=== PATIENT | female | born 1955 | race Caucasian/White ===

== ENCOUNTER 2018-01-24 17:30 | Observation (INO) ==
[2018-01-24] MEDS ORDERED: Insulin Regular, Human 100 UNIT/ML IV ONE (18:22)
[2018-01-24] MEDS ORDERED: *HR* Dextrose 50 % in Water (Syg) 50 ML SYRINGE IVP PRN ×2 (18:22→22:32)
[2018-01-24] MEDS ORDERED: Insulin Human Regular 100 UNIT in 0.9 % Sodium Chloride 100 ML IVC SCH ×2 (18:30→22:45)
--- NOTE | 2018-01-24 18:46 | Emergency Department Note ---
Disposition Clinical Impression: HHNC (hyperglycemic hyperosmolar nonketotic coma) Disposition: Admitted As Inpatient Condition: Fair General Adult HPI - General Chief complaint: ED Nausea/Vomiting/Diarrhea Stated complaint: High BS Time Seen by Provider: 01/24/18 18:09 Source: patient Mode of arrival: private vehicle Limitations: no limitations Nursing Notes Reviewed: Yes Vital Signs Reviewed: Yes - History of Present Illness HPI Narrative: This is a 62-year-old female with past medical history including hyperlipidemia , presents with a chief complaint of "high blood sugar". Patient complains of increased thirst, increased urination, increase night sweats for the past week. She has been using the restroom 4-5 times per night. She also complains of some vision changes. When she puts on her glasses, her vision remains blurry. This is new for her. She also complains of nausea today. Denies abdominal pain. No emesis. Her symptoms have progressively been getting worse. She overall feels weak. She was at her brother's house today. She checked her blood sugar with his glucose monitor. It read "high". As a result she came to the ER for further evaluation. She denies lightheadedness, chest pain, shortness of breath, abdominal pain, diarrhea. Denies fevers, chills, steroid use, antibiotic use, recent illness. 19:30 Discussed with hospitalist, Dr. Morataya, who will accept the patient for admission. Pain Scale: 3 - Related Data Home Medications Medication Instructions Recorded Confirmed Atorvastatin Calcium [Lipitor] 20 mg PO DAILY 01/24/18 01/24/18 Cholecalciferol (D-3) [Vitamin D] 1,000 unit PO DAILY 01/24/18 01/24/18 Cyanocobalamin (Vitamin B-12) 2,500 mcg PO DAILY 01/24/18 01/24/18 [Vitamin B12] Meloxicam [Mobic] 15 mg PO DAILY 01/24/18 01/24/18 Multivit-Min/FA/Lycopen/Lutein [A 1 tab PO DAILY 01/24/18 01/24/18 Thru Z Select Multivit Tab] Triamterene/HCTZ 37.5/25mg 1 each PO DAILY 01/24/18 01/24/18 [Dyazide] Allergies Allergy/AdvReac Type Severity Reaction Status Date / Time codeine Allergy Anaphylaxis Verified 01/24/18 19:16 All systems ED: reviewed and negative except as stated. Review of Systems: As Per HPI Constitutional: Denies: fever, chills Eyes: Reports: other (Blurry vision) ENT ED: Denies: throat pain, dysphagia Cardiovascular: Denies: chest pain, palpitations Respiratory: Denies: cough, dyspnea Gastrointestinal: Reports: nausea. Denies: abdominal pain, vomiting, diarrhea Genitourinary: Reports: frequency. Denies: dysuria Integumentary: Denies: rash Neurological: Reports: weakness. Denies: headache Endocrine: Reports: fatigue, polydipsia, polyuria Hematological/Lymphatic: Denies: easy bruising Past Medical History - Past Medical History Attestation: Yes The following information was validated with the patient. Source: patient Medical history: Reports: hyperlipidemia Psychiatric history: Reports: no psych history - Social History Smoking Status: Former smoker Smokeless Tobacco Status: No Alcohol use: Reports: none Drug use: Reports: none Physical Exam - General Limitations: no limitations General appearance: alert, in no apparent distress - Head Head exam: atraumatic, normocephalic - Eye Eye exam: Present: normal appearance, EOMI - ENT ENT exam: normal exam, mucous membranes moist - Respiratory Respiratory exam: Present: normal lung sounds bilaterally. Absent: respiratory distress, wheezes - Cardiovascular Cardiovascular exam: Present: normal rhythm, tachycardia, normal heart sounds - Abdominal Exam Abdominal exam: Present: soft, Non-Tender, normal bowel sounds. Absent: distention - Neurological Exam Neurological exam: Present: alert, oriented X3, CN II-XII intact - Psychiatric Psychiatric exam: Present: normal affect, normal mood - Skin Skin exam: Present: warm, dry, intact Course Course Narrative: Patient presents with signs and symptoms suspicious for new onset diabetes mellitus. Bedside glucometer 2 reads "high". She is tachycardic and appears dehydrated. We will check EKG, CBC, BMP, hepatic panel, lactic acid, troponin, venous blood gas, beta hydroxybutyric acid. Check chest x-ray. We will start IV fluids. Once BMP results with the potassium come back, we will start insulin. 19:10 EKG reviewed. Sinus tachycardia with rate 105 bpm. No evidence of acute ischemia. Troponin negative. Labs reviewed. She has a large anion gap and VBG with pH of 7.44. Corrected sodium 135. Potassium 3.5. Glucose is 719. Beta hydroxybutyric acid is elevated and greater than 2 We will give the patient oral and IV potassium prior to initiating the insulin drip. She continues to receive multiple liters of IV fluids for hydration. The patient will be admitted for further management of HHNC. Hospitalist consulted. 19:15 Discussed with hospitalist, Dr. Morataya. They accept admission. Vital Signs Temperature 98.2 F 01/24/18 17:46 Pulse Rate 111 01/24/18 17:46 Respiratory Rate 18 01/24/18 17:46 Blood Pressure 133/92 01/24/18 17:46 O2 Sat by Pulse Oximetry 96 01/24/18 17:46 Temperature 98.2 F 01/24/18 18:18 Pulse Rate 111 01/24/18 18:18 Respiratory Rate 18 01/24/18 18:18 Blood Pressure 133/92 01/24/18 18:18 O2 Sat by Pulse Oximetry 96 01/24/18 18:18 Oxygen Delivery Oxygen Delivery Room Air Medical Decision Making - Medical Records Medical records reviewed: Yes I reviewed the patient's medical records. - Lab Data Lab results reviewed: Yes I reviewed the patient's lab results. Result diagrams: 01/24/18 18:22 01/24/18 18:22 Lab Results 01/24/18 01/24/18 01/24/18 Range/Units 18:22 18:22 18:22 WBC 8.5 (4.3-11.1) K/mcL RBC 4.52 (3.82-4.97) M/mcL Hgb 14.8 (11.5-15.4) g/dL Hct 40.7 (35.3-44.9) % MCV 90.0 (83.0-100.0) fL MCH 32.7 (28.0-33.3) pg MCHC 36.4 H (31.6-35.5) g/dL RDW 12.5 (11.5-14.5) % Plt Count 253 (140-400) K/mcL MPV 12.2 (9.4-12.4) fL Immature Gran % 0.4 (0-4) % Seg Neutrophils % 69.6 % Lymphocytes % 15.7 % Monocytes % 11.2 % Eosinophils % 2.4 % Basophils % 0.7 % Neutrophils # 5.9 (1.6-8.9) K/mcL Lymphocytes # 1.3 (0.6-4.6) K/mcL Monocytes # 1.0 (0.0-1.3) K/mcL Eosinophils # 0.2 (0.0-0.6) K/mcL Basophils # 0.1 (0.0-0.2) K/mcL VBG pH (7.32-7.42) pH Units VBG pCO2 (41-51) mmHg VBG pO2 (25-50) mmHg VBG HCO3 (21-27) mEq/L Sodium 125 L (136-145) mEq/L Potassium 3.6 (3.5-5.1) mEq/L Chloride 81 L (98-107) mEq/L Carbon Dioxide 22 L (23-29) mEq/L BUN 34 H (8-23) mg/dL Creatinine 1.24 H (0.60-1.20) mg/dL Est GFR ( Amer) 53 L (> 60) Est GFR (Non-Af Amer) 44 L (> 60) BUN/Creatinine Ratio 27 H (6-26) Glucose 719 H* (70-105) mg/dL POC Glucose (70-99) mg/dL Calculated Osmolality 302 H (280-300) Lactic Acid (0.5-2.2) mmol/L Calcium 11.0 H (8.6-10.3) mg/dL Total Bilirubin 1.0 (0.3-1.0) mg/dL AST 19 (13-39) Units/L ALT 25 (7-52) Units/L Alkaline Phosphatase 108 H (34-104) Units/L Troponin I < 0.03 (< 0.04) ng/mL Serum Total Protein 7.3 (6.4-8.9) g/dL Albumin 4.4 (3.5-5.7) g/dL Globulin 2.9 (2.4-3.5) g/dL Albumin/Globulin Ratio 1.5 (1.1-2.2) Beta-Hydroxybutyric Acd > 2.00 H (0.02-0.27) mmol/L 01/24/18 01/24/18 01/24/18 Range/Units 18:23 18:24 18:34 WBC (4.3-11.1) K/mcL RBC (3.82-4.97) M/mcL Hgb (11.5-15.4) g/dL Hct (35.3-44.9) % MCV (83.0-100.0) fL MCH (28.0-33.3) pg MCHC (31.6-35.5) g/dL RDW (11.5-14.5) % Plt Count (140-400) K/mcL MPV (9.4-12.4) fL Immature Gran % (0-4) % Seg Neutrophils % % Lymphocytes % % Monocytes % % Eosinophils % % Basophils % % Neutrophils # (1.6-8.9) K/mcL Lymphocytes # (0.6-4.6) K/mcL Monocytes # (0.0-1.3) K/mcL Eosinophils # (0.0-0.6) K/mcL Basophils # (0.0-0.2) K/mcL VBG pH (7.32-7.42) pH Units VBG pCO2 (41-51) mmHg VBG pO2 (25-50) mmHg VBG HCO3 (21-27) mEq/L Sodium (136-145) mEq/L Potassium (3.5-5.1) mEq/L Chloride (98-107) mEq/L Carbon Dioxide (23-29) mEq/L BUN (8-23) mg/dL Creatinine (0.60-1.20) mg/dL Est GFR ( Amer) (> 60) Est GFR (Non-Af Amer) (> 60) BUN/Creatinine Ratio (6-26) Glucose (70-105) mg/dL POC Glucose > 600 H* > 600 H* (70-99) mg/dL Calculated Osmolality (280-300) Lactic Acid 1.1 (0.5-2.2) mmol/L Calcium (8.6-10.3) mg/dL Total Bilirubin (0.3-1.0) mg/dL AST (13-39) Units/L ALT (7-52) Units/L Alkaline Phosphatase (34-104) Units/L Troponin I (< 0.04) ng/mL Serum Total Protein (6.4-8.9) g/dL Albumin (3.5-5.7) g/dL Globulin (2.4-3.5) g/dL Albumin/Globulin Ratio (1.1-2.2) Beta-Hydroxybutyric Acd (0.02-0.27) mmol/L 01/24/18 Range/Units 18:46 WBC (4.3-11.1) K/mcL RBC (3.82-4.97) M/mcL Hgb (11.5-15.4) g/dL Hct (35.3-44.9) % MCV (83.0-100.0) fL MCH (28.0-33.3) pg MCHC (31.6-35.5) g/dL RDW (11.5-14.5) % Plt Count (140-400) K/mcL MPV (9.4-12.4) fL Immature Gran % (0-4) % Seg Neutrophils % % Lymphocytes % % Monocytes % % Eosinophils % % Basophils % % Neutrophils # (1.6-8.9) K/mcL Lymphocytes # (0.6-4.6) K/mcL Monocytes # (0.0-1.3) K/mcL Eosinophils # (0.0-0.6) K/mcL Basophils # (0.0-0.2) K/mcL VBG pH 7.44 H (7.32-7.42) pH Units VBG pCO2 43 (41-51) mmHg VBG pO2 62 H (25-50) mmHg VBG HCO3 29 H (21-27) mEq/L Sodium (136-145) mEq/L Potassium (3.5-5.1) mEq/L Chloride (98-107) mEq/L Carbon Dioxide (23-29) mEq/L BUN (8-23) mg/dL Creatinine (0.60-1.20) mg/dL Est GFR ( Amer) (> 60) Est GFR (Non-Af Amer) (> 60) BUN/Creatinine Ratio (6-26) Glucose (70-105) mg/dL POC Glucose (70-99) mg/dL Calculated Osmolality (280-300) Lactic Acid (0.5-2.2) mmol/L Calcium (8.6-10.3) mg/dL Total Bilirubin (0.3-1.0) mg/dL AST (13-39) Units/L ALT (7-52) Units/L Alkaline Phosphatase (34-104) Units/L Troponin I (< 0.04) ng/mL Serum Total Protein (6.4-8.9) g/dL Albumin (3.5-5.7) g/dL Globulin (2.4-3.5) g/dL Albumin/Globulin Ratio (1.1-2.2) Beta-Hydroxybutyric Acd (0.02-0.27) mmol/L - Radiology Data Radiology results reviewed: Yes I reviewed the patient's radiology results. Chest X-Ray 01/24/18 18:22 IMPRESSION: 1. Question small left effusion versus pericardial fat. 2. No focal consolidation. D/ / Vidal Donaldson MD / Vidal Donaldson MD Interpreting Provider: Vidal Donaldson MD - EKG Data EKG #1 EKG attestation: Yes I reviewed and interpreted this EKG. EKG results narrative: EKG on 01/24/18 at 18:37 with sinus tachycardia, rate 105bpm. SD interval 173 ms. QRS duration 83 ms. QTC [address] elevation or depression. No evidence of acute ischemia. There is some low QRS voltage in the precordial leads.
[2018-01-24 18:47] LABS: Basophils # 0.1 K/mcL (0.0-0.2); Basophils % 0.7 %; Eosinophils # 0.2 K/mcL (0.0-0.6); Eosinophils % 2.4 %; Hematocrit 40.7 % (35.3-44.9); Hemoglobin 14.8 g/dL (11.5-15.4); Immature Granulocytes % 0.4 % (0-4); Lymphocytes # 1.3 K/mcL (0.6-4.6); Lymphocytes % 15.7 %; Mean Corpuscular HGB Conc 36.4 g/dL (31.6-35.5); Mean Corpuscular Hemoglobin 32.7 pg (28.0-33.3); Mean Platelet Volume 12.2 fL (9.4-12.4); Monocytes % 11.2 %; Neutrophils # 5.9 K/mcL (1.6-8.9); Platelet Count 253 K/mcL (140-400); Red Blood Count 4.52 M/mcL (3.82-4.97); Red Cell Distribution Width 12.5 % (11.5-14.5); Segmented Neutrophils % 69.6 %
[2018-01-24 18:49] LABS: VBG HCO3 29 mEq/L (21-27); VBG PCO2 43 mmHg (41-51); VBG PH 7.44 pH Units (7.32-7.42); VBG PO2 62 mmHg (25-50)
[2018-01-24 19:10] LABS: Troponin I < 0.03 ng/mL (< 0.04)
[2018-01-24 19:18] LABS: Alanine Aminotransferase 25 Units/L (7-52); Albumin 4.4 g/dL (3.5-5.7); Albumin/Globulin Ratio 1.5 (1.1-2.2); Alkaline Phosphatase 108 Units/L (34-104); Aspartate Amino Transferase 19 Units/L (13-39); BUN/Creatinine Ratio 27 (6-26); Blood Urea Nitrogen 34 mg/dL (8-23); Carbon Dioxide 22 mEq/L (23-29); Chloride 81 mEq/L (98-107); Globulin 2.9 g/dL (2.4-3.5); Glucose 719 mg/dL (70-105); Osmolality,Calculated 302 (280-300); Potassium 3.6 mEq/L (3.5-5.1); Sodium 125 mEq/L (136-145); Total Protein 7.3 g/dL (6.4-8.9); eGFR For Non-African Americans 44 (> 60)
--- NOTE | 2018-01-24 19:25 | Emergency Department Note ---
Disposition Clinical Impression: HHNC (hyperglycemic hyperosmolar nonketotic coma) Disposition: Admitted As Inpatient Condition: Fair Forms: ED Satisfaction Letter General Adult HPI - General Chief complaint: ED Nausea/Vomiting/Diarrhea Stated complaint: High BS Time Seen by Provider: 01/24/18 18:09 Source: patient Mode of arrival: private vehicle Limitations: no limitations Nursing Notes Reviewed: Yes Vital Signs Reviewed: Yes - History of Present Illness Pain Scale: 3 - Related Data Allergies Allergy/AdvReac Type Severity Reaction Status Date / Time codeine Allergy Anaphylaxis Verified 01/24/18 19:16 Constitutional: Denies: fever, chills Eyes: Reports: other (Blurry vision) ENT ED: Denies: throat pain, dysphagia Cardiovascular: Denies: chest pain, palpitations Respiratory: Denies: cough, dyspnea Gastrointestinal: Reports: nausea. Denies: abdominal pain, vomiting, diarrhea Genitourinary: Reports: frequency. Denies: dysuria Integumentary: Denies: rash Neurological: Reports: weakness. Denies: headache Endocrine: Reports: fatigue, polydipsia, polyuria Hematological/Lymphatic: Denies: easy bruising Past Medical History - Past Medical History Medical history: Reports: hyperlipidemia Psychiatric history: Reports: no psych history - Social History Smoking Status: Former smoker Smokeless Tobacco Status: No Alcohol use: Reports: none Drug use: Reports: none Physical Exam - General Limitations: no limitations General appearance: alert, in no apparent distress Course Vital Signs Temperature 98.2 F 01/24/18 17:46 Pulse Rate 111 01/24/18 17:46 Respiratory Rate 18 01/24/18 17:46 Blood Pressure 133/92 01/24/18 17:46 O2 Sat by Pulse Oximetry 96 01/24/18 17:46 Temperature 98.2 F 01/24/18 18:18 Pulse Rate 111 01/24/18 18:18 Respiratory Rate 18 01/24/18 18:18 Blood Pressure 133/92 01/24/18 18:18 O2 Sat by Pulse Oximetry 96 01/24/18 18:18 Oxygen Delivery Oxygen Delivery Room Air Medical Decision Making - Lab Data Result diagrams: 01/24/18 18:22 01/24/18 18:22 Lab Results 01/24/18 01/24/18 01/24/18 Range/Units 18:22 18:22 18:22 WBC 8.5 (4.3-11.1) K/mcL RBC 4.52 (3.82-4.97) M/mcL Hgb 14.8 (11.5-15.4) g/dL Hct 40.7 (35.3-44.9) % MCV 90.0 (83.0-100.0) fL MCH 32.7 (28.0-33.3) pg MCHC 36.4 H (31.6-35.5) g/dL RDW 12.5 (11.5-14.5) % Plt Count 253 (140-400) K/mcL MPV 12.2 (9.4-12.4) fL Immature Gran % 0.4 (0-4) % Seg Neutrophils % 69.6 % Lymphocytes % 15.7 % Monocytes % 11.2 % Eosinophils % 2.4 % Basophils % 0.7 % Neutrophils # 5.9 (1.6-8.9) K/mcL Lymphocytes # 1.3 (0.6-4.6) K/mcL Monocytes # 1.0 (0.0-1.3) K/mcL Eosinophils # 0.2 (0.0-0.6) K/mcL Basophils # 0.1 (0.0-0.2) K/mcL VBG pH (7.32-7.42) pH Units VBG pCO2 (41-51) mmHg VBG pO2 (25-50) mmHg VBG HCO3 (21-27) mEq/L Sodium 125 L (136-145) mEq/L Potassium 3.6 (3.5-5.1) mEq/L Chloride 81 L (98-107) mEq/L Carbon Dioxide 22 L (23-29) mEq/L BUN 34 H (8-23) mg/dL Creatinine 1.24 H (0.60-1.20) mg/dL Est GFR ( Amer) 53 L (> 60) Est GFR (Non-Af Amer) 44 L (> 60) BUN/Creatinine Ratio 27 H (6-26) Glucose 719 H* (70-105) mg/dL POC Glucose (70-99) mg/dL Calculated Osmolality 302 H (280-300) Lactic Acid (0.5-2.2) mmol/L Calcium 11.0 H (8.6-10.3) mg/dL Total Bilirubin 1.0 (0.3-1.0) mg/dL AST 19 (13-39) Units/L ALT 25 (7-52) Units/L Alkaline Phosphatase 108 H (34-104) Units/L Troponin I < 0.03 (< 0.04) ng/mL Serum Total Protein 7.3 (6.4-8.9) g/dL Albumin 4.4 (3.5-5.7) g/dL Globulin 2.9 (2.4-3.5) g/dL Albumin/Globulin Ratio 1.5 (1.1-2.2) Beta-Hydroxybutyric Acd > 2.00 H (0.02-0.27) mmol/L 01/24/18 01/24/18 01/24/18 Range/Units 18:23 18:24 18:34 WBC (4.3-11.1) K/mcL RBC (3.82-4.97) M/mcL Hgb (11.5-15.4) g/dL Hct (35.3-44.9) % MCV (83.0-100.0) fL MCH (28.0-33.3) pg MCHC (31.6-35.5) g/dL RDW (11.5-14.5) % Plt Count (140-400) K/mcL MPV (9.4-12.4) fL Immature Gran % (0-4) % Seg Neutrophils % % Lymphocytes % % Monocytes % % Eosinophils % % Basophils % % Neutrophils # (1.6-8.9) K/mcL Lymphocytes # (0.6-4.6) K/mcL Monocytes # (0.0-1.3) K/mcL Eosinophils # (0.0-0.6) K/mcL Basophils # (0.0-0.2) K/mcL VBG pH (7.32-7.42) pH Units VBG pCO2 (41-51) mmHg VBG pO2 (25-50) mmHg VBG HCO3 (21-27) mEq/L Sodium (136-145) mEq/L Potassium (3.5-5.1) mEq/L Chloride (98-107) mEq/L Carbon Dioxide (23-29) mEq/L BUN (8-23) mg/dL Creatinine (0.60-1.20) mg/dL Est GFR ( Amer) (> 60) Est GFR (Non-Af Amer) (> 60) BUN/Creatinine Ratio (6-26) Glucose (70-105) mg/dL POC Glucose > 600 H* > 600 H* (70-99) mg/dL Calculated Osmolality (280-300) Lactic Acid 1.1 (0.5-2.2) mmol/L Calcium (8.6-10.3) mg/dL Total Bilirubin (0.3-1.0) mg/dL AST (13-39) Units/L ALT (7-52) Units/L Alkaline Phosphatase (34-104) Units/L Troponin I (< 0.04) ng/mL Serum Total Protein (6.4-8.9) g/dL Albumin (3.5-5.7) g/dL Globulin (2.4-3.5) g/dL Albumin/Globulin Ratio (1.1-2.2) Beta-Hydroxybutyric Acd (0.02-0.27) mmol/L 01/24/18 Range/Units 18:46 WBC (4.3-11.1) K/mcL RBC (3.82-4.97) M/mcL Hgb (11.5-15.4) g/dL Hct (35.3-44.9) % MCV (83.0-100.0) fL MCH (28.0-33.3) pg MCHC (31.6-35.5) g/dL RDW (11.5-14.5) % Plt Count (140-400) K/mcL MPV (9.4-12.4) fL Immature Gran % (0-4) % Seg Neutrophils % % Lymphocytes % % Monocytes % % Eosinophils % % Basophils % % Neutrophils # (1.6-8.9) K/mcL Lymphocytes # (0.6-4.6) K/mcL Monocytes # (0.0-1.3) K/mcL Eosinophils # (0.0-0.6) K/mcL Basophils # (0.0-0.2) K/mcL VBG pH 7.44 H (7.32-7.42) pH Units VBG pCO2 43 (41-51) mmHg VBG pO2 62 H (25-50) mmHg VBG HCO3 29 H (21-27) mEq/L Sodium (136-145) mEq/L Potassium (3.5-5.1) mEq/L Chloride (98-107) mEq/L Carbon Dioxide (23-29) mEq/L BUN (8-23) mg/dL Creatinine (0.60-1.20) mg/dL Est GFR ( Amer) (> 60) Est GFR (Non-Af Amer) (> 60) BUN/Creatinine Ratio (6-26) Glucose (70-105) mg/dL POC Glucose (70-99) mg/dL Calculated Osmolality (280-300) Lactic Acid (0.5-2.2) mmol/L Calcium (8.6-10.3) mg/dL Total Bilirubin (0.3-1.0) mg/dL AST (13-39) Units/L ALT (7-52) Units/L Alkaline Phosphatase (34-104) Units/L Troponin I (< 0.04) ng/mL Serum Total Protein (6.4-8.9) g/dL Albumin (3.5-5.7) g/dL Globulin (2.4-3.5) g/dL Albumin/Globulin Ratio (1.1-2.2) Beta-Hydroxybutyric Acd (0.02-0.27) mmol/L Attestation Statement - Attestation Attestation: I, Ravinder Palomares, examined this patient and my medical decision-making was reviewed with the METAL FABRICATOR/PA/Advanced Practice Nurse/Resident Physician. I agree with the documented findings, disposition and treatment plan as described except to the extent set forth below. 62-year-old female presents emergency Department with concerns of elevated blood sugar. Patient states she has felt fatigued and has been urinating more frequently over the past week. She checked her blood sugar with her brothers glucometer and it was unable to read. She has not had a history of diabetes in the past. No recent changes to her medications. Patient denies chest pain, abdominal pain, shortness of breath, nausea, vomiting, syncope. Patient's blood sugar in the emergency department today is about 719 and she has a large anion gap. VBG did not show significant acidemia. Her potassium was low at 3.6. She will be given oral and IV potassium in the emergency department. Insulin drip was ordered. Multiple liters of IV fluids ordered. Patient will be admitted to the hospital for further care and evaluation.
[2018-01-24] MEDS: 0.9 % Sodium Chloride 1,000 ML IVC SCH ×2 (19:33→20:37)
[2018-01-24] MEDS ORDERED: Potassium Chloride Elixir 20 MEQ/15 ML UDC PO ONE (19:54)
[2018-01-24] MEDS ORDERED: 0.9 % Sodium Chloride 1,000 ML IVC ONE (22:02)
[2018-01-24] MEDS ORDERED: Insulin Regular, Human 100 UNIT/ML IV PRN (22:32)
[2018-01-24] MEDS ORDERED: D5% in 0.45% NACL w KCl 20 MEQ/1,000 ML MLS IVC PRN (22:32)
[2018-01-24] MEDS ORDERED: 0.45 % Sodium Chloride w/KCl 20 MEQ/1,000 ML MLS IVC PRN (22:45)
[2018-01-24] MEDS ORDERED: 0.9 % Sodium Chloride w KCl 20 MEQ/1,000 ML MLS IVC ONE (22:50)
[2018-01-24 22:59] LABS: Estimated Average Glucose 407 mg/dl; Hemoglobin A1C 15.8 %
[2018-01-24] MEDS ORDERED: 0.9 % Sodium Chloride w KCl 20 MEQ/1,000 ML MLS IVC SCH (23:00)
[2018-01-24 23:28] LABS: VBG HCO3 26 mEq/L (21-27); VBG PCO2 40 mmHg (41-51); VBG PH 7.42 pH Units (7.32-7.42); VBG PO2 125 mmHg (25-50)
[2018-01-24 23:43] LABS: BUN/Creatinine Ratio 29 (6-26); Blood Urea Nitrogen 29 mg/dL (8-23); Calcium 9.5 mg/dL (8.6-10.3); Carbon Dioxide 24 mEq/L (23-29); Chloride 97 mEq/L (98-107); Glucose 320 mg/dL (70-105); Magnesium 1.7 mg/dL (1.6-2.6); Osmolality,Calculated 292 (280-300); Phosphorous 1.5 mg/dL (2.7-4.5); Potassium 3.6 mEq/L (3.5-5.1); Sodium 132 mEq/L (136-145); eGFR For Non-African Americans 57 (> 60)
[2018-01-25] MEDS ORDERED: Naloxone 0.4 MG/ML INJ IVP PRN (00:20)
--- NOTE | 2018-01-25 00:30 | Internal Med History&Physical ---
Date of Encounter: 01/25/18 Time of Encounter: 23:30 Internal Medicine - H&P: HPI Chief complaint: Hyperglycemic hyperosmolic state Admitted From: Home Plans for Post Hospital Care: Home History of present illness: Ms. Solano is a 62 year old female Patient presented to the emergency room for increased urine frequency, increased thirst, and vision changes that she has been experiencing for the past week. She has also had some balance issues as well when she walks. She has never had symptoms like these before. Prior to coming to the hospital, she went to her brother's house who is a known diabetic and used his glucometer to check her blood sugars. She says that the meter read high and did not even give her number. At that point she had her daughter bring her to the hospital to be evaluated. She has a significant family history of diabetes, that includes her brother and her mother. She was really concerned about the possibility of having diabetes because she has a history of a nonfunctioning right kidney that she has had since . She denies nausea, vomiting, chest pain, abdominal pain, headache, diarrhea, constipation and dysuria. In the emergency room she was found to have a blood sugar of 719, as well as several electrolyte abnormalities. VBG however showed pH of 7.44, PCO2 of 43, PO2 of 62 and a bicarbonate of 29. A1c was found to be 15.8. She is admitted for further medical management. Past Med Surg Social Fam HX - Past Medical History Medical history: hyperlipidemia Psychiatric history: no psych history - Social History Smoking Status: Former smoker Smokeless Tobacco Status: No Alcohol use: none Drug use: none - Family History Father Adopted: Zap: Boris Ko Living Status: Age at : 76 Cause of : [place] Hx Family Cardiac Disorders: Yes ([place]) Internal Medicine - H&P: Meds Atorvastatin Calcium [Lipitor] 20 mg PO DAILY 01/24/18 [History] Cholecalciferol (D-3) [Vitamin D] 1,000 unit PO DAILY 01/24/18 [History] Cyanocobalamin (Vitamin B-12) [Vitamin B12] 2,500 mcg PO DAILY 01/24/18 [History ] Meloxicam [Mobic] 15 mg PO DAILY 01/24/18 [History] Multivit-Min/FA/Lycopen/Lutein [A Thru Z Select Multivit Tab] 1 tab PO DAILY [History] Triamterene/HCTZ 37.5/25mg [Dyazide] 1 each PO DAILY 01/24/18 [History] 3 Allergy/AdvReac Type Severity Reaction Status Date / Time codeine Allergy Anaphylaxis Verified 01/24/18 19:16 All Systems PM: A 10-system review of systems was performed and is negative for pertinent findings except as documented above in the HPI. - Constitutional Vitals: Temp Pulse Resp BP Pulse Ox 98.2 F 88 16 143/75 95 01/24/18 23:06 01/25/18 00:08 01/24/18 23:06 01/24/18 23:06 01/24/18 23:06 General appearance: Present: cooperative, A&O X 3, pleasant, no acute distress, answers questions appropriately - Head Head exam: Present: normal inspection - Eye Eye exam: Present: EOMI, normal appearance - Respiratory Respiratory exam: Present: CTAB. Absent: chest wall tenderness, rales, respiratory distress, wheezes - Cardiovascular Cardiovascular exam: Present: RRR. Absent: diastolic murmur, systolic murmur - GI/Abdominal GI/Abdominal exam: Present: normal bowel sounds, soft. Absent: guarding, tenderness - Extremities Exam Extremities exam: Present: pedal edema, warm, radial pulses palpable and symmetrical. Absent: calf tenderness, tenderness - Neurological Exam Neurological exam: Present: no focal deficits, strengths equal and symetr throughout. Absent: motor sensory deficit, facial droop, speech deficit - Skin Skin exam: Present: normal color, warm Internal Med - H&P Results - Labs CBC & Chem 7: 01/25/18 04:54 01/25/18 04:54 Labs: BMP 01/24/18 23:15 Sodium 132 L Potassium 3.6 Chloride 97 L Carbon Dioxide 24 BUN 29 H Creatinine 0.99 Glucose 320 H Calcium 9.5 - ABG Interpretation ABG results: 01/24/18 23:25 VBG pH 7.42 VBG pCO2 40 L VBG pO2 125 H VBG HCO3 26 - Assessment and plan (1) Diabetes mellitus with hyperosmolarity without hyperglycemic hyperosmolar nonketotic coma Current Visit: Yes Status: Acute Assessment and plan: Patient had elevated blood glucose of 719 on admission, with an A1c of 15.1. Her osmolarity was 302. Anion gap was 22 on admission. Started HHS protocol Monitor blood sugars IV insulin drip Replete electrolytes as needed When anion gap closes, can switch patient to subcutaneous insulin and discontinue insulin drip as per protocol. Diabetes education not available at this hospital, will try to arrange some form of education for patient as she will require insulin at discharge. (2) Single kidney Current Visit: Yes Status: Acute Assessment and plan: Patient has apparently only one kidney due to her condition she has had her entire life. She was concerned about having diabetes and it was one of the reasons she came to the hospital due to the risk to her kidney. Continue to monitor kidney function Patient will receive multiple boluses of IV fluids for treatment of her hyperosmotic hyperglycemic state. (3) Vision changes Current Visit: Yes Status: Acute Assessment and plan: Improved since initiating treatment for her high blood sugar. Patient wears glasses at home, and currently does not have them with her which likely makes her vision worse as well. Continue to monitor Retrieve eye glasses from home. (4) Hyperlipidemia Current Visit: Yes Status: Acute Assessment and plan: Patient on atorvastatin at home. Continue home meds. Qualifiers: Qualified Code(s): E78.5 - Hyperlipidemia, unspecified (5) DVT prophylaxis Current Visit: Yes Status: Acute Assessment and plan: Heparin subcutaneous - Time Spent With Patient Total time spent is greater than 50% in coordination of care (as documented) at patient's floor/unit and/or counseling patient: Greater than 35 minutes
[2018-01-25] MEDS ORDERED: Ibuprofen 600 MG TABLET PO ONE (02:50)
[2018-01-25] MEDS ORDERED: D5% in Water 1,000 ML IVC PRN (02:53)
[2018-01-25] MEDS ORDERED: Dextrose Gel 15 GM/37.5 ML TUBE PO PRN ×2 (02:53)
[2018-01-25] MEDS ORDERED: *HR* Dextrose 50 % in Water (Syg) 50 ML SYRINGE IVP PRN (02:53)
[2018-01-25] MEDS ORDERED: Insulin DETEMIR 100 UNIT/ML X5UNITS SQ SCH (03:00)
[2018-01-25 05:23] LABS: Basophils # 0.1 K/mcL (0.0-0.2); Basophils % 0.8 %; Eosinophils # 0.2 K/mcL (0.0-0.6); Hematocrit 34.3 % (35.3-44.9); Immature Granulocytes % 0.3 % (0-4); Lymphocytes # 1.4 K/mcL (0.6-4.6); Lymphocytes % 21.7 %; Mean Corpuscular HGB Conc 36.4 g/dL (31.6-35.5); Mean Corpuscular Hemoglobin 33.6 pg (28.0-33.3); Mean Corpuscular Volume 92.2 fL (83.0-100.0); Mean Platelet Volume 12.2 fL (9.4-12.4); Monocytes # 0.8 K/mcL (0.0-1.3); Monocytes % 12.1 %; Platelet Count 200 K/mcL (140-400); Red Blood Count 3.72 M/mcL (3.82-4.97); Red Cell Distribution Width 12.5 % (11.5-14.5); Segmented Neutrophils % 62.1 %
[2018-01-25 05:25] LABS: Hemoglobin 12.5 g/dL (11.5-15.4)
[2018-01-25 05:38] LABS: VBG HCO3 26 mEq/L (21-27); VBG PCO2 40 mmHg (41-51); VBG PH 7.43 pH Units (7.32-7.42); VBG PO2 143 mmHg (25-50)
[2018-01-25 05:41] LABS: BUN/Creatinine Ratio 29 (6-26); Blood Urea Nitrogen 24 mg/dL (8-23); Calcium 9.2 mg/dL (8.6-10.3); Carbon Dioxide 25 mEq/L (23-29); Chloride 102 mEq/L (98-107); Glucose 199 mg/dL (70-105); Osmolality,Calculated 288 (280-300); Potassium 3.7 mEq/L (3.5-5.1); Sodium 134 mEq/L (136-145); eGFR For Non-African Americans > 60 (> 60)
[2018-01-25] MEDS ORDERED: Insulin LISPRO 300 UNITS/3 ML VIAL SQ SCH ×2 (07:30→21:00)
[2018-01-25] MEDS ORDERED: Potassium Phosphate 44 MEQ in 0.9 % Sodium Chloride 250 ML IVPB ONE (07:39)
[2018-01-25] MEDS ORDERED: 0.9 % Sodium Chloride 500 ML ONE (08:41)
[2018-01-25] MEDS: Insulin LISPRO 300 UNITS/3 ML VIAL SQ SCH ×2 (12:36→17:16)
--- NOTE | 2018-01-25 16:00 | Internal Med Progress Note ---
Date of Encounter: 01/25/18 Time of Encounter: 09:20 - Assessment and plan (1) Diabetes mellitus with hyperosmolarity without hyperglycemic hyperosmolar nonketotic coma Current Visit: Yes Status: Acute Assessment and plan: Newly diagnosed uncontrolled diabetes, admitted with hyperosmolar hyperglycemic state, started on IV insulin infusion protocol. Blood sugars much improved, off IV insulin at this time. Started on subcutaneous basal bolus insulin regimen, continue Accu-Chek blood glucose monitoring. Patient will need to be discharged on insulin. Hemoglobin A1c noted to be 15.8%. certified lactation educator consult. Diabetic diet. (2) Hyperlipidemia Current Visit: Yes Status: Chronic Qualifiers: Hyperlipidemia type: unspecified Qualified Code(s): E78.5 - Hyperlipidemia , unspecified (3) Obesity Current Visit: Yes Status: Chronic Qualifiers: Obesity classification: adult class 2 (BMI 35 - 39.9) Serious obesity comorbidity presence: with serious comorbidity Body mass index: BMI 35.0-35.9 Qualified Code(s): E66.9 - Obesity, unspecified; Z68.35 - Body mass index ( BMI) 35.0-35.9, adult (4) Acute kidney injury Current Visit: Yes Status: Resolved Assessment and plan: Due to hyperglycemia and polyuria. Improved with IV hydration. - Time Spent With Patient Total time spent is greater than 50% in coordination of care (as documented) at patient's floor/unit and/or counseling patient: - Subjective Interval history: Reports feeling much better. Improved nausea, vomiting, dizziness. Blood sugars improved, off IV insulin. Tolerates oral diet. - Constitutional Vitals: Temp Pulse Resp BP Pulse Ox 97.8 F 82 18 146/61 97 01/25/18 07:34 01/25/18 11:32 01/25/18 11:32 01/25/18 07:34 01/25/18 11:32 General appearance: Present: cooperative, A&O X 3, pleasant, answers questions appropriately - Respiratory Respiratory exam: Present: CTAB. Absent: accessory muscle use, rales, rhonchi, wheezes - Cardiovascular Cardiovascular exam: Present: RRR, +S1, +S2. Absent: diastolic murmur, gallop, rubs, systolic murmur - GI/Abdominal GI/Abdominal exam: Present: normal bowel sounds, soft, no peritoneal signs. Absent: distended, tenderness - Extremities Exam Extremities exam: Present: full ROM, warm, radial pulses palpable and symmetrical. Absent: calf tenderness, cyanotic, pedal edema - Neurological Exam Neurological exam: Present: CN II-XII intact, oriented X3, no focal deficits. Absent: pronater drift, facial droop, speech deficit Internal Medicine: Result - Labs CBC & Chem 7: 01/25/18 04:54 01/25/18 04:54 Labs: Short CBC 01/25/18 Range/Units 04:54 WBC 6.4 (4.3-11.1) K/mcL Hgb 12.5 D (11.5-15.4) g/dL Hct 34.3 L (35.3-44.9) % Plt Count 200 (140-400) K/mcL Neutrophils # 4.0 (1.6-8.9) K/mcL BMP 01/24/18 01/25/18 23:15 04:54 Sodium 132 L 134 L Potassium 3.6 3.7 Chloride 97 L 102 Carbon Dioxide 24 25 BUN 29 H 24 H Creatinine 0.99 0.82 Glucose 320 H 199 H Calcium 9.5 9.2 Consult Discharge Plan - Plan Referrals: Alirio Mcguire MD [Primary Care Provider] - 02/06/18 11:10 am
[2018-01-25] MEDS: *HR* Heparin 5,000 UNIT/ML VIAL SQ SCH (17:15)
--- NOTE | 2018-01-25 17:57 | Electrocardiograph Report ---
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
[2018-01-25] MEDS: Insulin DETEMIR 100 UNIT/ML X5UNITS SQ SCH (21:04)
[2018-01-26] MEDS ORDERED: Acetaminophen 325 MG TABLET PO PRN (00:24)
[2018-01-26 04:56] LABS: BUN/Creatinine Ratio 21 (6-26); Blood Urea Nitrogen 19 mg/dL (8-23); Calcium 9.1 mg/dL (8.6-10.3); Carbon Dioxide 26 mEq/L (23-29); Chloride 103 mEq/L (98-107); Glucose 273 mg/dL (70-105); Magnesium 1.6 mg/dL (1.6-2.6); Osmolality,Calculated 292 (280-300); Potassium 3.5 mEq/L (3.5-5.1); Sodium 135 mEq/L (136-145); eGFR For Non-African Americans > 60 (> 60)
[2018-01-26] MEDS: *HR* Heparin 5,000 UNIT/ML VIAL SQ SCH (06:34)
[2018-01-26 07:33] VITALS: BP 144/68
[2018-01-26] MEDS: Insulin DETEMIR 100 UNIT/ML X5UNITS SQ SCH (07:53)
[2018-01-26] MEDS: Insulin LISPRO 300 UNITS/3 ML VIAL SQ SCH (07:53)
[2018-01-26] MEDS ORDERED: Insulin DETEMIR 100 UNIT/ML X5UNITS SQ SCH (08:24)
[2018-01-26] MEDS ORDERED: *HR* Metformin 500 MG TABLET PO SCH (08:25)
--- NOTE | 2018-01-26 09:19 | Discharge Summary ---
- NOTES TO OUTPATIENT PROVIDER Notes to Outpatient Provider: Newly diagnosed uncontrolled DM; being discharged on long acting insulin and Metformin; needs f/up with DM educator and medical coding specialist; Date of Encounter: 01/26/18 Time of Encounter: 09:15 - Discharge Diagnosis (1) Diabetes mellitus with hyperosmolarity without hyperglycemic hyperosmolar nonketotic coma Priority: Primary Status: Acute (2) Hyperlipidemia Priority: Secondary Status: Chronic Qualifiers: Hyperlipidemia type: unspecified Qualified Code(s): E78.5 - Hyperlipidemia , unspecified (3) Obesity Priority: Secondary Status: Chronic Qualifiers: Obesity type: due to excess calories Obesity classification: adult class 2 (BMI 35 - 39.9) Serious obesity comorbidity presence: with serious comorbidity Body mass index: BMI 35.0-35.9 Qualified Code(s): E66.01 - Morbid (severe) obesity due to excess calories; Z68.35 - Body mass index (BMI) 35.0-35.9, adult (4) Acute kidney injury Priority: Primary Status: Resolved Hospital course: Ms. Solano is a 62 year old female with the above medical problems, admitted with dizziness, nausea and vomiting. She was noted to have uncontrolled blood sugars with hyperosmolar hyperglycemic nonketotic state. She has no previous history of diabetes. She was started on IV insulin infusion protocol, labs and blood sugars gradually improved. She had acute kidney injury associated with hyperglycemia, which improved with IV hydration. Hemoglobin A1c was noted to be 15.8%, she is being discharged on long-acting insulin and metformin. She received basic diabetes education and information on consistent carbohydrate/ ADA diet and lifestyle modifications. She is being prescribed a glucometer and is encouraged to check her blood sugars frequently. She will follow-up with her PCP for blood sugar monitoring and also with community health educator/dietitian as outpatient. Discharge discussed with: patient, nurse - Time Spent with Patient Total time spent providing and/or coordinating discharge services: Greater than 30 minutes (45 min) - Discharge Medications Prescriptions: Blood Sugar Diagnostic [Blood Glucose Test Strip] 1 each ACHS #100 strip Blood-Glucose Meter [Accu-Chek Bria Connect] 1 each ACHS #1 each Insulin Glargine [Lantus] 35 unit SQ HS 30 Days #3 mls Lancets 1 each ACHS #100 each metFORMIN [Glucophage] 500 mg PO BIDWM #60 tablet Syrge-Ndl,Ins 0.3 ml Half Mg [Insulin Syringe] 1 each HS #30 disp.syrin Home Medications: Atorvastatin Calcium [Lipitor] 20 mg PO DAILY 01/24/18 [History] Cholecalciferol (D-3) [Vitamin D] 1,000 unit PO DAILY 01/24/18 [History] Cyanocobalamin (Vitamin B-12) [Vitamin B12] 2,500 mcg PO DAILY 01/24/18 [History ] Meloxicam [Mobic] 15 mg PO DAILY 01/24/18 [History] Multivit-Min/FA/Lycopen/Lutein [A Thru Z Select Multivit Tab] 1 tab PO DAILY [History] Triamterene/HCTZ 37.5/25mg [Dyazide] 1 each PO DAILY 01/24/18 [History] Blood Sugar Diagnostic [Blood Glucose Test Strip] 1 each ACHS #100 strip [Rx] Blood-Glucose Meter [Accu-Chek Bria Connect] 1 each ACHS #1 each 01/26/18 [ Rx] Insulin Glargine [Lantus] 35 unit SQ HS 30 Days #3 mls 01/26/18 [Rx] Lancets 1 each ACHS #100 each 01/26/18 [Rx] Syrge-Ndl,Ins 0.3 ml Half Mg [Insulin Syringe] 1 each HS #30 disp.syrin [Rx] metFORMIN [Glucophage] 500 mg PO BIDWM #60 tablet 01/26/18 [Rx] Allergies/Adverse Reactions: 3 Allergy/AdvReac Type Severity Reaction Status Date / Time codeine Allergy Anaphylaxis Verified 01/24/18 19:16 Date of admission: 01/24/18 19:50 Primary care physician: Alirio Mcguire MD Consults: 01/25/18 03:59 Consult to Diabetes Education [CONS] Routine Comment: Reason for Consult: new onset diabetes 01/25/18 04:04 consult to medical coding specialist [Consult to Nutrition] [CONS] Routine Comment: Consulting Provider: NUTRITION Reason for Dietary Consult: Diet Education Other:: New onset diabetes. 01/25/18 04:05 Consult to Endocrinology [CONS] Routine Consulting Provider: Endocrinology & Diabetes Corina Reason for Consult: new onset diabetes Call Completed: No Discharging clinician: Mone Cifuentes Anticipated date of discharge: 01/26/18 - Constitutional Vitals: Temp Pulse Resp BP Pulse Ox 97.9 F 77 17 144/68 98 01/26/18 06:51 01/26/18 07:59 01/26/18 06:51 01/26/18 06:51 01/26/18 06:51 General appearance: Present: cooperative, A&O X 3, pleasant, answers questions appropriately - Cardiovascular Cardiovascular exam: Present: RRR, +S1, +S2. Absent: diastolic murmur, gallop, rubs, systolic murmur - Patient Status Disposition: Home, Self-Care Condition: Good Functional capacity at discharge: independent ambulation Overall status at discharge: patient is progressing back to baseline - Discharge Instructions Instructions: Metformin (By mouth), Insulin Human Regular (Injection), Insulin Glargine (Injection), How to Check Your Blood Sugar (DC), Diabetes Mellitus Type 2 in Adults (DC) Follow Up With: Alirio Mcguire MD [Primary Care Provider] - 02/06/18 11:10 am - Diet and Activity Activity: resume usual activities as tolerated Diet: diabetic diet, low fat, low cholesterol
== END 2018-01-26 11:50 | disposition home or self-care (01) ==
LOC: EMEROO 17:30 → 2NENU 17:30 → SUATTDRO 19:50 → 2NNU 20:51
PROVIDERS: ADMIT Family Medicine; ATTEND Internal Medicine